=== PATIENT | male | born 1945 ===

== ENCOUNTER 2022-01-08 06:30 | Day surgery (SDC) | payer MEDICARE ==
[2022-01-07 10:28] VITALS: BMI 29.6
[2022-01-08] MEDS ORDERED: PROPOFOL 40 ML ONE (08:37)
[2022-01-08] MEDS ORDERED: Lidocaine 1% PF 5 ML VIAL ONE (08:37)
[2022-01-08] MEDS ORDERED: PHENYLEPHRINE-NS 100 MCG/ML 10 ML SYRINGE ONE (09:05)
== END 2022-01-08 09:42 | disposition home or self-care (01) ==
LOC: CSHSDC 06:30
PROVIDERS: ATTEND Internal Medicine Gastroenterology
PROC: 0DJD8ZZ Inspection of Lower Intestinal Tract, Via Natural or Artificial Opening Endoscopic (ICD-10-PCS; principal; 2022-01-08)
DX: Z12.11 Encounter for screening for malignant neoplasm of colon (principal); K57.30 Diverticulosis of large intestine without perforation or abscess without bleeding; K64.9 Unspecified hemorrhoids; I10 Essential (primary) hypertension; E78.5 Hyperlipidemia, unspecified; E11.9 Type 2 diabetes mellitus without complications; H91.90 Unspecified hearing loss, unspecified ear; Z20.822 Contact with and (suspected) exposure to COVID-19
CPT/HCPCS: J2704